=== PATIENT | male | born 1960 | race Caucasian/White ===

== ENCOUNTER 2016-08-10 12:06 | Emergency (ER) | payer OTHER ==
[~2016-08-10] VITALS: Ht 180.3 cm; Wt 109.0 kg
[~2016-08-10 12:06] MED LIST: BENI20TA26 PO; INDO25CA PO; LUMI0.01 RIGHT EYE; METO50CR PO; METO50TA11 PO
[2016-08-10 12:09] VITALS: BP 187/98; PULSE 78; RESP 20; TEMP 98; O2SAT 98
--- NOTE | 2016-08-10 12:23 | PD ---
HPI Chief Complaint: Pain: Acute or Chronic Time Seen by Provider: 12:20 Travel History International Travel<30 days: No Contact w/Intl Traveler<30days: No Traveled to known affect area: No History of Present Illness HPI Patient comes in complaining of gout flare in his left knee ongoing for approximately 7 days. Patient denies doing anything for this. Denies any fevers or known trauma. Patient states pain feels similar to previous gout flares. Patient states that he gave up drinking on the first the year and shortly after that is when the pain began. Pain feels similar previous gout flares. PFSH Past Medical History Gout: Yes Hypertension: Yes Tetanus Vaccination: < 5 Years Influenza Vaccination: No Past Surgical History Abdominal Surgery: Yes (UMBILICAL HERNIA) Eye Surgery: Yes (GLAUCOMA REPAIR) Social History Alcohol Use: No Tobacco Use: No Substance Use: No Allergies-Medications (Allergen,Severity, Reaction): Coded Allergies: No Known Allergies (Unverified , 08/10/16) Reported Meds & Prescriptions Reported Meds & Active Scripts Active Indomethacin 50 Mg Cap 50 Mg PO Q8HR PRN Take with food, milk, or antacids to decrease stomach adverse effects. Metoprolol Succinate ER 24 HR (Metoprolol Succinate) 50 Mg Tab 50 Mg PO DAILY Review of Systems Except as stated in HPI: all other systems reviewed are Neg Physical Exam Narrative GENERAL: Well-developed, overly nourished, in no acute distress, and non-ill appearing. SKIN: Warm and dry. Afebrile and nonerythematous. HEAD: Atraumatic. Normocephalic. EYES: Pupils equal and round. EOMI. No scleral icterus. No injection or drainage. ENT: No nasal bleeding or discharge. Mucous membranes pink and moist. NECK: Trachea midline. Supple. No nuclear rigidity. CARDIOVASCULAR: Dorsal pulses 2+ intact bilaterally. Capillary refill less than 2 seconds. No pedal edema. RESPIRATORY: No accessory muscle use. No respiratory distress. MUSCULOSKELETAL: No obvious deformities. No clubbing. No cyanosis. No edema. Full range of motion. Knee: Negative patellar apprehension, varus and valgus maneuvers, anterior draw test, and Arnaud test. Pulses equal BL distal to injury. Capillary refill less than 2 seconds distal to injury and equal BL. FROM distal to injury and equal BL. Strength distal to injury equal BL. NV intact distal to injury. Dorsal pulses equal BL. NEUROLOGICAL: Awake and alert. No obvious cranial nerve deficits. Motor grossly within normal limits. Normal speech. PSYCHIATRIC: Appropriate mood and affect; insight and judgment normal. Data Data Last Documented VS Vital Signs Date Time Temp Pulse Resp B/P Pulse Ox O2 Delivery O2 Flow Rate FiO2 08/10/16 12:09 98.0 78 20 187/98 98 Room Air Orders Ketorolac Inj (Toradol Inj) (08/10/16 12:30) Ice/Cold Pack (08/10/16 12:20) ^ Dada Bandage (08/10/16 12:23) MDM Medical Decision Making Medical Screen Exam Complete: Yes Emergency Medical Condition: Yes Differential Diagnosis Gout, pseudogout, septic arthritis, other Narrative Course The patient appears to have acute gouty arthritis. There is no evidence to suggest infectious, septic joint at this time. There was no significant erythema , heat, swelling or fluctuance. The patient has had no distal or local trauma, cuts or abrasions. There has been no fever. The patient has had similar episodes and has a history of gout. There is no trauma to suspect contusion, strain or fracture. There is no clinical evidence to suggest bursitis, tendonitis, osteoarthritis, Rheumatoid arthritis, or septic arthritis. The patient was placed NSAID medication and the patient was instructed on ice packs as well. The patient was instructed to follow up with his primary care doctor or orthopedics. The patient agreed with plan. Patient in no obvious distress upon re-evaluation. Reports improvement of pain status post medication. Patient was asked if they wanted to speak to my attending, which the patient did not wish to do at this time. Any questions/ concerns in reference to patient diagnosis/condition discussed and clarified prior to patient's discharge. Reinforced sheer importance of close follow up with patient's primary physician or primary care clinic. Instructed patient to return to ED immediately, if symptoms return/worsen. Pt showed understanding of above instructions. Further instructions and recommendations were detailed in discharge paperwork. Pt ambulated without difficulty out of ED at discharge. Diagnosis Primary Impression: Gout Qualified Code: M10.9 - Gout, unspecified cause, unspecified chronicity, unspecified site Patient Instructions: General Instructions, Gout (ED) Additional Instructions: Follow-up with your primary care physician and/or orthopedics in 3-5 days for reevaluation. Take all medication as prescribed. Apply ice to affected area 20 minutes prior as needed for pain. Wear Dada wrap for comfort as needed. Return to the emergency department if symptoms get worse. Med/Other Pt SpecificInfo: Prescription(s) given Scripts Indomethacin 50 Mg Cap50 Mg PO Q8HR PRN (PAIN SCALE 1 TO 10) #15 CAP Ref 0 Take with food, milk, or antacids to decrease stomach adverse effects. Prov:Temitope Lance MD 08/10/16 Disposition: 01 DISCHARGE HOME Condition: Stable Steven Hallman Aug 10, 2016 12:23
[2016-08-10] MEDS ORDERED: KETOROLAC TROMETHAMINE 60 MG/2 ML (IM) VIAL IM ONE (12:30)
[2016-08-10] MEDS ORDERED: INDO50CA PO (13:05)
[2016-08-12] MEDS ORDERED: MEDR4PAK PO (14:34)
[2016-08-12] MEDS ORDERED: COLC1CAP3 PO (14:34)
[2016-08-12] MEDS ORDERED: METO50TA11 PO ×2 (14:38→14:39)
[2016-12-19] MEDS ORDERED: COLC1CAP3 PO (14:56)
[2016-12-19] MEDS ORDERED: MEDR4PAK PO (14:56)
== END 2016-08-10 13:55 | disposition home or self-care (01) ==
LOC: NEPB 12:06
DX: M10.9 Gout, unspecified (principal); I10 Essential (primary) hypertension
CPT/HCPCS: 96372; 99283; J1885